=== PATIENT | male | born 1980 | race Two or more races ===

== ENCOUNTER 2022-02-14 16:01 | Emergency (ER) | payer MEDICAID, OTHER ==
[~2022-02-14] VITALS: Ht 188 cm; Wt 150.0 kg
[2022-02-14] MEDS ORDERED: SODIUM CHLORIDE 0.9% 1,000 ML IV ONE (17:00)
[2022-02-14 17:38] LABS: Albumin 3.9 g/dL (3.4-5.0); Magnesium 2.4 mg/dL (1.6-2.6); Potassium 4.2 mmol/L (3.5-5.1)
[2022-02-14 17:41] LABS: Bilirubin, Total 0.7 mg/dL (0.2-1.0); Total Protein 7.9 g/dL (6.4-8.2)
[2022-02-14 19:06] LABS: Basophils # (auto) 0.2 10 ^3/uL (0-0.2); Basophils % (auto) 2.4 % (0.0-2.0); Eosinophils # (auto) 0.2 10 ^3/uL (0-0.8); Eosinophils % (auto) 2.6 % (0.0-7.0); Hematocrit 46.9 % (41.0-53.0); Hemoglobin 15.2 g/dL (13.5-17.5); Lymphocytes # (auto) 1.2 10 ^3/uL (0.4-5.4); Lymphocytes % (auto) 17.5 % (10.0-50.0); Mean Corpuscular Hemoglobin 29.7 pg (28.0-32.0); Mean Corpuscular Hgb Conc. 32.4 g/dL (32.0-36.0); Mean Corpuscular Volume 91.4 fL (80.0-100.0); Monocytes # (auto) 0.4 10 ^3/uL (0-1.3); Monocytes % (auto) 5.7 % (0.0-12.0); Neutrophils # (auto) 4.7 10 ^3/uL (1.6-8.6); Neutrophils % (auto) 71.8 % (37.0-80.0); Nucleated Red Blood Cells % 0.1 %; Red Blood Cells 5.13 10^6/uL (4.5-5.90); Red Cell Distribution Width 13.7 % (11.8-14.3); White Blood Cell 6.6 10^3/uL (4.4-10.8)
[2022-02-15] MEDS ORDERED: ASPirin 81 mg TAB PO ONE (00:45)
[2022-02-15 08:15] VITALS: BP 130/84
== END 2022-02-15 08:35 | disposition short-term general hospital (02) ==
LOC: ER 16:01
DX: R42 Dizziness and giddiness (principal); H53.8 Other visual disturbances; Z20.822 Contact with and (suspected) exposure to COVID-19
CPT/HCPCS: 36415; 70450; 71046; 80053; 83735; 84484; 87426; 96360; 96361; 99285; J7030